=== PATIENT | female | born 1950 | race Native Hawaiian/Other Pacific Islander ===

== ENCOUNTER 2019-03-23 15:29 | Outpatient (CLI) | payer OTHER | END 2019-03-23 15:30 | disposition home or self-care (01) | LOC: C.MAMMO 15:29 | DX: Z12.31 Encounter for screening mammogram for malignant neoplasm of breast (principal) ==

== ENCOUNTER 2019-04-06 12:04 | Outpatient (CLI) | payer OTHER | END 2019-04-06 12:05 | disposition home or self-care (01) | LOC: C.LAB 12:04 ==

== ENCOUNTER 2019-04-06 12:45 | Outpatient (CLI) | payer OTHER | END 2019-04-06 12:46 | disposition home or self-care (01) | LOC: C.RADIC 12:45 ==